=== PATIENT | male | born 1955 | race African-American/Black ===

== ENCOUNTER 2017-10-26 18:03 | Emergency (ER) | payer OTHER ==
[~2017-10-26] VITALS: Ht 172.7 cm; Wt 94.5 kg
[2017-10-26 18:33] VITALS: BP 118/70; PULSE 76; RESP 18; TEMP 98.5; O2SAT 92
[2017-10-26 18:38] VITALS: BP 118/70; PULSE 75; RESP 18; TEMP 98.5; O2SAT 98
[2017-10-26] MEDS ORDERED: ASPI-516 CHEW (18:42)
[2017-10-26] MEDS ORDERED: TAMS0.4C4 (18:42)
[2017-10-26 19:11] VITALS: BP 116/67; PULSE 69; RESP 16; O2SAT 95
[2017-10-26] MEDS ORDERED: SODIUM CHLORIDE 0.9% FLUSH 10 ML FLUSH IVF PRN (19:30)
--- NOTE | 2017-10-26 19:35 | PD ---
HPI Chief Complaint: Syncope/Near-Syncope Time Seen by Provider: 19:07 Travel History International Travel<30 days: No Contact w/Intl Traveler<30days: No Traveled to known affect area: No History of Present Illness HPI Patient 62-year-old male who 2 hours prior to presentation was sitting in a local restaurant eating a taco salad when suddenly he felt very hot and flushed and felt like he was going to pass out, he conveyed this to his his states that he slumped forward in his chair eyes wide open and was unresponsive for a few seconds. He states he does not recall but apparently await staff member walked into an area where he could lie down and apparently he threw up once or twice and then ended up on the ground and that is when he came to with paramedics standing over him. Is unclear as how long he was out the second time. No shortness of breath no chest pain no focalized weakness. This is never happened to him before, he has a history of throat cancer in remission states he has not seen his oncologist in several years PFSH Past Medical History Hx Anticoagulant Therapy: Yes (81MG ASA ) Cancer: Yes (THROAT, REMISSION SINCE OCTOBER 2009) Medical other: Yes (BPH) Social History Alcohol Use: Yes Tobacco Use: No Substance Use: No Allergies-Medications (Allergen,Severity, Reaction): Coded Allergies: No Known Allergies (Unverified , 10/26/17) Reported Meds & Prescriptions Reported Meds & Active Scripts Active Reported Aspirin 81 Mg Chew 81 Mg CHEW DAILY Tamsulosin (Tamsulosin HCl) 0.4 Mg Cap 0.4 Mg HS Review of Systems Except as stated in HPI: all other systems reviewed are Neg Physical Exam Narrative GENERAL: Well-developed well-nourished no obvious distress. SKIN: Focused skin assessment warm/dry. HEAD: Atraumatic. Normocephalic. EYES: Pupils equal and round. No scleral icterus. No injection or drainage. ENT: No nasal bleeding or discharge. Mucous membranes pink and moist. NECK: Trachea midline. No JVD. CARDIOVASCULAR: Regular rate and rhythm. No murmur appreciated. 2+ bilateral equal pulses in all 4 extremities. RESPIRATORY: No accessory muscle use. Clear to auscultation. Breath sounds equal bilaterally. GASTROINTESTINAL: Abdomen soft, non-tender, nondistended. Hepatic and splenic margins not palpable. MUSCULOSKELETAL: No obvious deformities. No clubbing. No cyanosis. No edema. NEUROLOGICAL: Awake and alert. Cranial nerves II through XII grossly intact and nonfocal, 5 out of 5 strength in all 4 extremities, cerebellar testing negative, ambulates with an even narrow-base gait. PSYCHIATRIC: Appropriate mood and affect; insight and judgment normal. Data Data Last Documented VS Vital Signs Date Time Temp Pulse Resp B/P (MAP) Pulse Ox O2 Delivery O2 Flow Rate FiO2 10/26/17 22:11 10/26/17 19:11 69 16 95 Room Air 10/26/17 18:38 98.5 Orders Orders Complete Blood Count With Diff (10/26/17:23) Comprehensive Metabolic Panel (10/26/17:) B-Type Natriuretic Peptide (10/26/17:) Ckmb (Isoenzyme) Profile (10/26/17:) Troponin I (10/26/17:) Urinalysis - C+S If Indicated (10/26/17:) Chest, Single Ap (10/26/17:23) Ecg Monitoring (10/26/17 19:23) Iv Access Insert/Monitor (10/26/17:23) Oximetry (10/26/17:23) Sodium Chloride 0.9% Flush (Ns Flush) (10/26/17 19:30) D-Dimer (10/26/17 19:34) Act Partial Throm Time (Ptt) (10/26/17 19:34) Prothrombin Time / Inr (Pt) (10/26/17 19:34) Ct Brain W/O Iv Contrast(Rout) (10/26/17 ) Electrocardiogram (10/26/17 17:48) CKMB (10/26/17 20:45) CKMB% (10/26/17 20:45) Ed Discharge Order (10/26/17 21:53) Labs Laboratory Tests Test 10/26/17 19:37 10/26/17 19:40 10/26/17 20:45 White Blood Count 5.8 TH/MM3 Red Blood Count 5.94 MIL/MM3 Hemoglobin 14.8 GM/DL Hematocrit 46.0 % Mean Corpuscular Volume 77.5 FL Mean Corpuscular Hemoglobin 25.0 PG Mean Corpuscular Hemoglobin Concent 32.3 % Red Cell Distribution Width 15.2 % Platelet Count 180 TH/MM3 Mean Platelet Volume 8.6 FL Neutrophils (%) (Auto) 65.4 % Lymphocytes (%) (Auto) 24.1 % Monocytes (%) (Auto) 4.6 % Eosinophils (%) (Auto) 4.7 % Basophils (%) (Auto) 1.2 % Neutrophils # (Auto) 3.8 TH/MM3 Lymphocytes # (Auto) 1.4 TH/MM3 Monocytes # (Auto) 0.3 TH/MM3 Eosinophils # (Auto) 0.3 TH/MM3 Basophils # (Auto) 0.1 TH/MM3 CBC Comment DIFF FINAL Differential Comment B-Type Natriuretic Peptide LESS THAN 2 PG/ML Prothrombin Time 11.1 SEC Prothromb Time International Ratio 1.1 RATIO Activated Partial Thromboplast Time 23.3 SEC D-Dimer Quantitative (PE/DVT) 0.22 MG/L FEU Urine Color YELLOW Urine Turbidity HAZY Urine pH 5.0 Urine Specific Morley 1.024 Urine Protein 30 mg/dL Urine Glucose (UA) NEG mg/dL Urine Ketones NEG mg/dL Urine Occult Blood NEG Urine Nitrite NEG Urine Bilirubin NEG Urine Urobilinogen LESS THAN 2 mg/dL Urine Leukocyte Esterase NEG Urine Hyaline Casts 12 /lpf Urine Mucus FEW /lpf Microscopic Urinalysis Comment CULT NOT INDICATED Blood Urea Nitrogen 13 MG/DL Creatinine 1.13 MG/DL Random Glucose 54 MG/DL Total Protein 7.2 GM/DL Albumin 3.6 GM/DL Calcium Level 8.7 MG/DL Alkaline Phosphatase 67 U/L Aspartate Amino Transf (AST/SGOT) 16 U/L Alanine Aminotransferase (ALT/SGPT) 31 U/L Total Bilirubin 0.5 MG/DL Sodium Level 140 MEQ/L Potassium Level 4.2 MEQ/L Chloride Level 103 MEQ/L Carbon Dioxide Level 29.1 MEQ/L Anion Gap 8 MEQ/L Estimat Glomerular Filtration Rate 80 ML/MIN Total Creatine Kinase 178 U/L Creatine Kinase MB 0.7 NG/ML Troponin I LESS THAN 0.02 NG/ML MDM Medical Decision Making Medical Screen Exam Complete: Yes Emergency Medical Condition: Yes Differential Diagnosis Syncope, cardiac syncope, vasogenic syncope, dehydration, rhabdomyolysis. Narrative Course Patient room to the emergency department, had a syncopal episode actually 3-4 hours prior to presentation, he appears quite well and in no distress now, he does state that he was working outdoors mowing his grass earlier today and had a couple of years as well and then had been eating outside. He thinks all these factors contributed to mild dehydration. I certainly think that his theory is plausible. He has not had any chest pain shortness of breath and would be low risk in the symphysis, syncope scale. Discussed with him observation status versus follow-up outpatient after his labs EKG and chest x- ray and CT of the head are negative. A d-dimer was also sent also negative. He would like to follow-up in [place] and had home tonight with his driving. I think this is reasonable. Discussed return to ED criteria follow- up with his primary care physician. Diagnosis Primary Impression: Syncope Patient Instructions: General Instructions, Syncope (DC) Additional Instructions: Follow up with your regular physician this week. Disposition: 01 DISCHARGE HOME Condition: Stable Reno Valles MD Oct 26, 2017 19:35
[2017-10-26 19:47] LABS: AUTOMATED NEUTROPHIL # 3.8 TH/MM3 (1.8-7.7); BASOPHIL # 0.1 TH/MM3 (0-0.2); BASOPHIL % 1.2 % (0.0-2.0); EOSINOPHIL # 0.3 TH/MM3 (0-0.4); EOSINOPHIL % 4.7 % (0.0-4.0); HEMOGLOBIN 14.8 GM/DL (13.0-17.0); LYMPH % 24.1 % (9.0-44.0); LYMPHOCYTE # 1.4 TH/MM3 (1.0-4.8); MEAN CELL VOLUME 77.5 FL (80.0-100.0); MEAN CORPUSCULAR HGB CONC 32.3 % (32.0-36.0); MEAN PLATELET VOLUME 8.6 FL (7.0-11.0); MONO % 4.6 % (0.0-8.0); MONOCYTE # 0.3 TH/MM3 (0-0.9); NEUT % 65.4 % (16.0-70.0); PLATELET COUNT 180 TH/MM3 (150-450); RED BLOOD COUNT 5.94 MIL/MM3 (4.50-5.90); RED CELL DISTRIBUTION WIDTH 15.2 % (11.6-17.2); WHITE BLOOD COUNT 5.8 TH/MM3 (4.0-11.0)
[2017-10-26 20:15] LABS: BILIRUBIN, URINE NEG (NEG); BLOOD, URINE NEG (NEG); GLUCOSE,URINE NEG (NEG); HYALINE CAST, URINE 12 /lpf (RARE); KETONE, URINE NEG (NEG); MUCUS URINE FEW /lpf (OCC); NITRITE,URINE NEG (NEG); URINE COLOR YELLOW (YELLW/STRAW); URINE LEUKOCYTE ESTERASE NEG (NEG)
[2017-10-26 20:21] LABS: INTERNATIONAL NORMALIZED RATIO 1.1 RATIO; PROTHROMBIN TIME - PATIENT 11.1 SEC (9.8-11.6)
[2017-10-26 20:27] LABS: D-DIMER 0.22 MG/L FEU (0.00-0.50)
--- NOTE | 2017-10-26 20:34 | RADRPT ---
EXAM DATE: 10/26/2017 8:22 PM EDT AGE/SEX: 62 years / Male INDICATIONS: Palpitations. CLINICAL DATA: This is the patient's initial encounter. Patient reports that signs and symptoms have been present for 1 day and indicates a pain score of 0/10. MEDICAL/SURGICAL HISTORY: None. None. COMPARISON: No prior exams available for comparison. FINDINGS: No focal airspace disease or effusion. Heart size normal. Mildly tortuous aorta. CONCLUSION: No acute findings. Electronically signed by: Jose David Mendoza MD 10/26/2017 8:32 PM EDT
[2017-10-26 21:26] LABS: ALBUMIN 3.6 GM/DL (3.4-5.0); BICARBONATE 29.1 MEQ/L (21.0-32.0); BLOOD UREA NITROGEN 13 MG/DL (7-18); CALCIUM 8.7 MG/DL (8.5-10.1); CHLORIDE 103 MEQ/L (98-107); CREATININE 1.13 MG/DL (0.60-1.30); GLOMERULAR FILTRATION RATE 80 ML/MIN (>89); GLUCOSE,RANDOM 54 MG/DL (74-106); SODIUM (NA) 140 MEQ/L (136-145)
[2017-10-26 21:27] LABS: AST (GOT) 16 U/L (15-37)
--- NOTE | 2017-10-26 21:33 | RADRPT ---
EXAM DATE: 10/26/2017 9:15 PM EDT AGE/SEX: 62 years / Male INDICATIONS: Patient states he had a syncopal episode, but feels fine now. CLINICAL DATA: This is the patient's initial encounter. Patient reports that signs and symptoms have been present for 1 day and indicates a pain score of 0/10. MEDICAL/SURGICAL HISTORY: . Throat cancer None. RADIATION DOSE: 45.13 CTDI (mGy) COMPARISON: No prior exams available for comparison. TECHNIQUE: CT of the head without contrast. Using automated exposure control and adjustment of the mA and/or kV according to patient size, radiation dose was kept as low as reasonably achievable to ob tain optimal diagnostic quality images. FINDINGS: Cerebrum: The ventricles are normal for age. No evidence of midline shift, mass lesion, hemorrhage or acute infarction. No extraaxial fluid collections are seen. Posterior Fossa: The cerebellum and brainstem are intact. The 4th ventricle is midline. The cerebe llopontine angle is unremarkable. Extracranial: The visualized portion of the orbits is intact. Skull: The calvaria is intact. No evidence of skull fracture. CONCLUSION: 1. No acute intracranial abnormalities. Electronically signed by: Jose David Mendoza MD 10/26/2017 9:31 PM EDT
[2017-10-26 21:39] LABS: ALKALINE PHOSPHATASE 67 U/L (45-117); ALT (GPT) 31 U/L (12-78); TOTAL BILIRUBIN ADULT 0.5 MG/DL (0.2-1.0); TOTAL PROTEIN 7.2 GM/DL (6.4-8.2); TROPONIN I LESS THAN 0.02 NG/ML (0.02-0.05)
--- NOTE | 2017-10-27 12:38 | EKG ---
Date Performed: 10/26/2017 Time Performed: 17:48:42 PTAGE: 62 years EKG: Sinus rhythm NORMAL ECG NO PREVIOUS TRACING DOCTOR: Frankie Villalta Interpretating Date/Time 10/27/2017 12:36:18
== END 2017-10-26 22:21 | disposition home or self-care (01) ==
LOC: NEPE 18:03
DX: R55 Syncope and collapse (principal); N40.0 Benign prostatic hyperplasia without lower urinary tract symptoms; Z79.82 Long term (current) use of aspirin; Z85.819 Personal history of malignant neoplasm of unspecified site of lip, oral cavity, and pharynx; Z79.899 Other long term (current) drug therapy
CPT/HCPCS: 70450; 71045; 80053; 81001; 82550; 82552; 83880; 84484; 85025; 85379; 85610; 85730; 93005; 99285